=== PATIENT | male | born 1985 | race Hispanic/Latino ===

== ENCOUNTER 2016-12-25 18:37 | Emergency (ER) | payer OTHER ==
[~2016-12-25] VITALS: Ht 177.8 cm; Wt 108.9 kg
[2016-12-25] MEDS ORDERED: TYLE500T78 PO (18:49)
[2016-12-25] MEDS ORDERED: IBUP800T23 PO (18:49)
[2016-12-25] MEDS ORDERED: ACETAMINOPHEN 325 MG TAB PO ONE (21:30)
[2016-12-25] MEDS ORDERED: CEPHALEXIN 500 MG CAP PO ONE (22:00)
[2016-12-25] MEDS ORDERED: KEFL500C7 PO (22:05)
[2016-12-25 22:23] VITALS: BP 132/68
== END 2016-12-25 22:25 | disposition home or self-care (01) ==
LOC: M ED 19:34
DX: J02.9 Acute pharyngitis, unspecified (principal); R50.9 Fever, unspecified; Z88.8 Allergy status to other drugs, medicaments and biological substances